=== PATIENT | male | born 1995 | race Caucasian/White ===

== ENCOUNTER → 2019-07-23 | Outpatient (CLI) | payer OTHER ==
--- NOTE | 2019-07-23 14:34 | REP ---
Hand series: Four views. History: Open wound. Findings: There is a crush type fracture longitudinally oriented through the distal phalanx of the long finger with associated soft-tissue swelling. Given the history, this is consistent with an open fracture of the distal phalanx. Impression: Findings consistent with an open crush type fracture distal phalanx long finger. Electronically Signed by Jonathan Peterson MD 07/23/2019 02:25 P
== END ==
LOC: M WUC 13:39
PROVIDERS: ATTEND Nurse Practitioner Family
DX: S62.632A Displaced fracture of distal phalanx of right middle finger, initial encounter for closed fracture (principal); X58.XXXA Exposure to other specified factors, initial encounter; Y92.9 Unspecified place or not applicable

== ENCOUNTER 2020-09-15 08:45 | Emergency (ER) | payer SELFPAY ==
[~2020-09-15] VITALS: Ht 177.8 cm; Wt 71.8 kg
[2020-09-15] MEDS ORDERED: CLIN300C5 (08:54)
[2020-09-15] MEDS ORDERED: ACETAMINOPHEN 500 MG TAB PO ONE (09:15)
[2020-09-15 09:44] LABS: BASO % 0.2 % (0.0-1.0); EOS # 0.1 10^3/uL (0.0-0.5); EOS % 1.2 % (0.0-3.0); HEMATOCRIT 41.2 % (42.0-52.0); MEAN CORPUSCULAR VOLUME 88.2 fl (80.0-96.0); MONO # 1.2 10^3/uL (0.0-0.8); MONO % 13.6 % (0.0-5.0); NEUTROPHILS # 6.6 10^3/uL (1.5-8.5); NEUTROPHILS % 73.7 % (36.0-66.0); PLATELET COUNT, AUTOMATED 163 10^3/uL (150-450); RED BLOOD COUNT 4.67 10^6/uL (4.30-6.10)
[2020-09-15] MEDS ORDERED: ISOVUE-370 76% 100ML VIAL As Ordered ONE (09:51)
--- NOTE | 2020-09-15 10:22 | REP ---
INDICATION: R mandibular swelling, r/o abscess. COMPARISON: None. TECHNIQUE: 75 mL of intravenous Isovue 370 is administered. Helical scanning is acquired and 3 mm axial images are generated. Coronal and sagittal MPR images are generated. FINDINGS: There is a mucous retention cyst in the left maxillary sinus. The visualized paranasal sinuses are otherwise clear. The parotid and submandibular glands are normal and symmetric. Tonsillar and peritonsillar soft tissues are unremarkable. There is mild reactive adenopathy in the right anterior cervical and right submandibular region. There is diffuse swelling and edema deep to the platysma and anterior to the sternocleidomastoid muscle in the right neck at the level of the thyroid cartilage. No abscess is visible. Thyroid lobes are normal and homogeneous. No vascular abnormality is observed. The largest lymph node in the right anterior jugular chain measures 9 mm in short axis dimension by 2 cm craniocaudal by 13 mm in oblique medial to lateral span. An opaque BB is affixed to the skin overlying the right masseter muscle. Mass or muscles are symmetric and homogeneous. There unerupted wisdom teeth bilaterally in the mandible. No mandibular bony destructive lesion is seen. At the medial aspect of the right mandibular angle, there is ill-defined low-density consistent with edema. There is soft tissue edema in the floor of the mouth along the medial aspect of the right mandible body. However, no evidence of walled off abscess. There is a small periodontal cyst in the anterior midline of the mandible associated with the central mandibular incisors. This measures 10 mm in greatest diameter IMPRESSION: Nonlocalized pattern of edema medial to the right mandibular body and angle in the floor of the mouth. There is subcutaneous edema in the neck soft tissues deep to the platysma extending down to the level of the thyroid cartilage on the right. No walled-off abscess is seen. Cellulitis pattern. There are reactive lymph nodes in the anterior jugular chain. Unerupted mandibular wisdom teeth is are seen. There is a 1 cm radiolucency in the anterior midline of the mandible associated with the mandibular incisors which is most likely an incidental periodontal cyst. No other bony destructive lesion is seen. <Electronically signed by Yasmany Peterson > 09/15/20 [id number]
[2020-09-15] MEDS ORDERED: dexameTHASONE 20MG/5ML VIAL (J1100 PER 1MG) IV ONE (10:45)
[2020-09-15] MEDS ORDERED: KETOROLAC 30 MG/ML 1ML VIAL IV ONE (10:45)
[2020-09-15] MEDS ORDERED: AMPICILLIN SOD/SULBACTAM SOD 3 GM in D5W MINI-BAG PLUS 100 ML IV ONE ×2 (10:45→17:30)
[2020-09-15] MEDS ORDERED: MORPHINE 4 MG/ML 1ML VIAL/SYRINGE (J2270) IV ONE (14:30)
[2020-09-15] MEDS ORDERED: NORC1TAB7 PO ×2 (15:37→15:56)
[2020-09-15] MEDS ORDERED: IBUP80TA PO (15:37)
[2020-09-15] MEDS ORDERED: AUGM875T28 PO (15:37)
[2020-09-15 18:09] VITALS: BP 167/82
== END 2020-09-15 18:47 | disposition home or self-care (01) ==
LOC: M ED 08:45
DX: K02.9 Dental caries, unspecified (principal); R22.0 Localized swelling, mass and lump, head; F17.210 Nicotine dependence, cigarettes, uncomplicated
CPT/HCPCS: 70491; 80047; 85025; 87880; 96365; 96366; 96375; 99284; J1100; J1885; J2270; Q9967